=== PATIENT | male | born 1980 | race Caucasian/White ===

== ENCOUNTER 2023-02-09 11:20 | Emergency (ER) | payer SELFPAY ==
[2023-02-09 11:25] VITALS: BP 120/66; PULSE 88; RESP 16; TEMP 36.7; O2SAT 95
--- NOTE | 2023-02-09 12:31 | ED.SKABFB ---
HPI - Skin/Abscess/Foreign Bdy General Chief complaint: Skin/Abscess/Foreign Body Stated complaint: ?BUG BITE Time Seen by Provider: 02/09/23 11:57 History of Present Illness HPI narrative: Patient is a 42-year-old male presenting with cellulitis. Patient states that on Monday the abscess on his left back spontaneously drained. He went to another hospital and was started on Bactrim which he has been taking as prescribed. States that there is some more redness spreading so he came in for evaluation. States he has had decreased appetite but no vomiting. No fevers. Denies further complaints. Related Data Allergies Allergy/AdvReac Type Severity Reaction Status Date / Time No Known Allergies Allergy Mild Verified 02/09/23 12:42 Review of Systems Review of Systems: All systems reviewed & are unremarkable except as noted in HPI and below PMFSH Family History Family History Mother Asthma Family history of diabetes mellitus in first degree relative Father Family history of coronary artery disease Social History Social History Alcohol intake: current Exam Narrative: GENERAL: Well-appearing, well-nourished, and in no acute distress. HEAD: Normocephalic, atraumatic. EYES: PERRLA and EOMI. ENT: Nares clear, no rhinorrhea or epistaxis. Mucous membranes moist. NECK: Supple. CHEST: No respiratory distress. HEART: Regular rate and rhythm ABDOMEN: Soft, nontender, nondistended EXTREMITIES: Normal range of motion. No edema. SKIN: Warm, dry, area of cellulitis lateral left chest wall extending to upper back with central head draining slight purulent/bloody drainage NEURO: No focal deficits. Alert and oriented x3. PSYCH: Normal mood and affect. Course Vital Signs Vital signs: Vital Signs Temperature 98.1 F 02/09/23 11:25 Pulse Rate 88 02/09/23 11:25 Respiratory Rate 16 02/09/23 11:25 Blood Pressure 120/66 02/09/23 11:25 Pulse Oximetry 95 02/09/23 11:25 Oxygen Delivery Room Air 02/09/23 11:25 Temperature 98.1 F 02/09/23 11:25 Pulse Rate 88 02/09/23 11:25 Respiratory Rate 16 02/09/23 11:25 Blood Pressure 120/66 02/09/23 11:25 Pulse Oximetry 95 02/09/23 11:25 Oxygen Delivery Room Air 02/09/23 11:25 MDM - Skin/Abscess/Foreign Bdy MDM Narrative Medical decision making narrative: Patient is a 42-year-old male presenting with cellulitis. Vitals are within normal limits. Patient is well-appearing and in no acute distress. Exam is remarkable for the above. He does have an area of cellulitis on his left upper back spreading to his left chest wall. There is an area of drainage. Sounds like he is only been covered with Bactrim, will add Keflex for additional strep coverage. We will apply warm compress to encourage additional drainage. Advised that he apply warm compresses 4 times daily for the next several days. Advised that he complete the antibiotics as prescribed and follow-up closely with PCP for wound check within the next couple of days. Appropriate return precautions given. Patient voiced understanding and is agreeable with plan. Discharged in stable condition. Differential Diagnosis Differential diagnosis: Likely abscess of skin or subcutaneous tissue and cellulitis Medical Records Attestation: I reviewed the patient's medical records. Critical Care Time Critical Care Time Critical Care Time: No Discharge Plan Discharge Clinical Impression: Cellulitis, Abscess of skin or subcutaneous tissue Patient Disposition: Home, Self-Care Condition: Stable Instructions: Antibiotic Form, Cellulitis (ED), Abscess (ED) Additional Instructions: Please complete both antibiotics as prescribed. Please apply warm compresses to the area several times a day for the next few days to encourage continued drainage. Please call primary care to schedule close
[2023-02-09] MEDS: CEPHALEXIN 500 MG CAPSULE PO (12:38)
== END 2023-02-09 13:32 | disposition home or self-care (01) ==
PROVIDERS: Emergency Provider Emergency Medicine
DX: L03.312 Cellulitis of back [any part except buttock and flank] (principal)
CPT/HCPCS: 99283; A9270

== ENCOUNTER 2025-04-30 08:43 | Emergency (ER) | payer BC, SELFPAY ==
--- NOTE | ~2025-04-30 | CT_ITS ---
EXAMINATION: CT abdomen pelvis wo con DATE: 04/30/2025 09:25 INDICATION: Flank pain TECHNIQUE: Computed tomography (CT) of the abdomen and pelvis was performed without intravenous contrast. Automated exposure control and iterative reconstruction technique were employed. The dose-length product was 292.78 mGy-cm. COMPARISON: None FINDINGS: Mild dependent atelectasis in bilateral lower lobes. Heart size is normal. No pericardial or pleural effusion. Small sliding-type hiatal hernia. A few hepatic calcifications consistent with old granulomatous disease. Spleen, pancreas, bilateral adrenal glands and left kidney are normal. 3 to 4 mm stone at the right ureterovesicular junction with mild right hydroureteronephrosis. Partially decompressed bladder is otherwise unremarkable. Bowels including the appendix are normal. No free intraperitoneal gas or fluid. No pathologically enlarged abdominal or pelvic lymphadenopathy. And mild to moderate lower thoracic and minimal to mild lumbar spondylosis. IMPRESSION: 1. Obstructing 3-4 mm stone at the right ureterovesicular junction with mild right hydroureteronephrosis. Reviewed, dictated and finalized at location A. IMPRESSION: 1. Obstructing 3-4 mm stone at the right ureterovesicular junction with mild ri ght hydroureteronephrosis.
--- NOTE | ~2025-04-30 | XR_ITS ---
EXAMINATION: XR abdomen/kub 1V DATE: 04/30/2025 10:45 INDICATION: Flank pain. Ureteral calculi. TECHNIQUE: A supine view of the abdomen on 2 radiographs was obtained. COMPARISON: CT dated 04/30/2025 FINDINGS: 3-4 mm stone at the right ureterovesicular junction is clearly evident on the plain radiographs. There are couple small phleboliths in the left hemipelvis. No other suspicious calcifications in the abdomen or pelvis. Normal bowel gas pattern. IMPRESSION: 1. 3-4 mm stone at the right ureterovesicular junction. Reviewed, dictated and finalized at location A.
[2025-04-30 08:46] VITALS: BP 151/90; PULSE 62; RESP 16; TEMP 36.3; O2SAT 99
--- OUTSIDE RECORDS SUMMARY | 2025-04-30 08:57 | XMS_ITS | Data Portability ---
Author Organization [place] [facility], Main Office Address [address] [place] [address] Assessment Encounter Date Assessment Date Assessment LastModified by Organization Details LastModified Time 11/21/2023 11/21/2023 Assessment: TIAGO PLMD Hypoventilation Plan: The following were reviewed and explained to the patient: primary care/referral note General information on sleep disordered breathing, evaluation of sleep disordered breathing, treatment with PAP therapy, and living with PAP therapy were covered. Chapter 1 of educational DVD was shown. PSG is medically necessary to determine the degree of and management of sleep apnea. We discussed with the patient the impact of weight on: Sleep disordered breathing RANJITH We discussed with the patient the benefit of PAP therapy on: Sleep disordered breathing Anxiety/Depression Headaches RANJITH Educated the patient on sleep hygiene measures. Relaxing rituals to rest easy, understanding foods with positive and negative impact on sleep, creating a peaceful sleep environment, timing of exercise, using herbal sleep aids, and practicing sleep-friendly meditation were covered. To determine how much sleep is needed, the patient will assess where he falls on the spectrum, examine what lifestyle factors such as work schedules and stress are affecting the quality and quantity of sleep. In general, adults need 7-9 hours of sleep. Educated the patient regarding foods that promote sleep. These include but are not limited to cherries, bananas, toast, oatmeal, and warm milk. Educated the patient regarding foods and drinks to avoid before bedtime. These include but are not limited to aged cheese, chocolate, spicy foods, tomato-based sauces, soy, ginseng tea and processed meat. Advocated influenza vaccination annually and pneumonia vaccination 2045. Advocated weight loss through diet and exercise. Patient's ideal body weight according to height and gender is up to 185 lbs. Encouraged patient to adjust caloric intake to maintain/achieve ideal body weight, emphasizing on fruits, vegetables, whole grains, and fat-free or low-fat products. These include lean meats, poultry, fish, beans, eggs, and nuts and foods that are low in saturated fats, trans-fats, cholesterol, salt (sodium), and glycemic index. Stressed the importance of regular exercise up to the patient's capacity limits. In this case, we recommend 20 min daily walking, 2 days a week of resistance training. Patient to monitor BP daily and bring records to PCP for further management. Follow-up: 1 week after diagnostic sleep study [email or web address] Not available 11/21/2023 09:54:29 12/12/2023 12/12/2023 Assessment: Very severe OSAHS, AHI = 76 Plan: The following were reviewed and explained to the patient: [facility] split sleep study 11/27/23 sleep onset = 5 minutes, REM onset = 277.5 minutes, AHI = 76, supine AHI = 90, Figueroa [employer] Arnoldo medium Deborah nasal mask @ 11-20 cmH2O, PLMI = 0.0 Educated the patient on problems and solutions associated with positive airway pressure (PAP) use. Difficulty tolerating pressure, mask leaks, intolerance of interface, nasal congestion, claustrophobic response, dry mouth, and unintentional mask removal during sleep were covered. Patient has some difficulty tolerating pressure. Patient is advised to practice wearing PAP daily while awake, lower pressure with or without sleeping on sides, activate PAP ramp feature, have blower checked to make sure pressure is set as prescribed and return to sleep center for consideration of auto-adjusting PAP therapy. Dry mouth is a normal occurrence for people who just start out on PAP therapy because they are not used to air blowing in to the throat to hold open. Dry mouth is exacerbated for people who wear nasal PAP mask and whose jaw drops open during sleep. Not only does this create a much less efficient therapy because of leakage, it also causes dry mouth. There are a couple solutions to help prevent this type of problem. A simple solution would be to wear a chinstrap which essentially holds the jaw in place. A second solution would be a switch to a full face mask which covers both the nose and mouth. Although this is another easy solution, using a full face mask for some could seem claustrophobic or confining. There is no silver bullet solution as no single mask is right for everybody. Sometimes it takes a bit of experimentation to find a PAP mask which best meets the patient's needs as well as fits comfortably. Another tactic is to use a humidifier on your PAP machine. Most new PAP machines have integrated humidifiers. Humidification is booker when dealing with symptoms of dry mouth because the humidifier can supply both warm and room temperate air. Even a small amount of humidity in the airflow will help nasal passages to stay hydrated. If a person is using both a full face mask and a PAP machine with a heated humidifier and is still experiencing dry mouth, an ill-fitted PAP mask might be causing the problem. Leakage can be caused by a mask that is to large or small, the wrong style mask, the cushion is degraded or simply because the mask's straps aren't adjusted correctly. If leakage occurs, dry air from the room can leak in while humidification escapes. The result is reduced humidification within the circuit and resulting in dry throat and mouth. Finally, beyond factors involving the PAP machine and mask, dry mouth can also be caused or worsened by dehydration. The general recommendation to during eight 8 oz. glasses of water a day might be too little for many people. When people drink large amounts of coffee or other caffeine beverages, or sweat a lot during the day, making sure to rehydrate is an important part of PAP therapy. ResMed Air Sense 11 auto set unit with heated humidifier, supplies and Figueroa [employer] GlySure medium Deborah nasal mask @ 11-20 cmH2O ordered. Further titration will be based on clinical response. Provided the patient with a list of local home care stores where positive airway pressure (PAP) units, accoutrement, and services are available. Home care store selection is based on patient's insurance carrier. Patient will setup an appointment with [facility] for supplies and pressure adjustments. A major predictor of success with use of PAP is follow-up with both the respiratory supplier and the treating physician. The respiratory supplier optimally will follow-up within two weeks after starting use while the treating physician optimally will follow-up within 90 days after starting therapy to assess adherence and effectiveness of treatment. The download results can show the treating physician information about adherence to treatment, residual AHI while on treatment and presence of large mask leakage. This information is especially helpful if the patient has residual sleepiness despite treatment. General information on sleep disordered breathing, evaluation of sleep disordered breathing, treatment with PAP therapy, and living with PAP therapy were covered. Chapter 3 of educational DVD was shown. We discussed with the patient the impact of weight on: Sleep disordered breathing RANJITH We discussed with the patient the benefit of PAP therapy on: Sleep disordered breathing Anxiety/Depression Headaches RANJITH Educated the patient on sleep hygiene measures. Relaxing rituals to rest easy, understanding foods with positive and negative impact on sleep, creating a peaceful sleep environment, timing of exercise, using herbal sleep aids, and practicing sleep-friendly meditation were covered. To determine how much sleep is needed, the patient will assess where he falls on the spectrum, examine what lifestyle factors such as work schedules and stress are affecting the quality and quantity of sleep. In general, adults need 7-9 hours of sleep. Educated the patient regarding foods that promote sleep. These include but are not limited to cherries, bananas, toast, oatmeal, and warm milk. Educated the patient regarding foods and drinks to avoid before bedtime. These include but are not limited to aged cheese, chocolate, spicy foods, tomato-based sauces, soy, ginseng tea and processed meat. Advocated influenza vaccination annually and pneumonia vaccination 2045. Advocated weight loss through diet and exercise. Patient's ideal body weight according to height and gender is up to 185 lbs. Encouraged patient to adjust caloric intake to maintain/achieve ideal body weight, emphasizing on fruits, vegetables, whole grains, and fat-free or low-fat products. These include lean meats, poultry, fish, beans, eggs, and nuts and foods that are low in saturated fats, trans-fats, cholesterol, salt (sodium), and glycemic index. Stressed the importance of regular exercise up to the patient's capacity limits. In this case, we recommend 20 min daily walking, 2 days a week of resistance training. Patient to monitor BP daily and bring records to PCP for further management. Follow-up: 3 months, February 2024 [email or web address] Not available 12/12/2023 15:06:52 Plan of Treatment Reminders Order Date Submit Date Provider Last Modified By Organization Details Last Modified Time Details Appointments None recorde d. Lab None recorde d. Referral None recorde d. Procedures None recorde d. Surgeries None recorde d. Imaging polysom nogram, diagnos tic, 6 yrs or older 024 11/21/19 24 5 [facility], [place], [address], [place], [address], 4 09:22:12 Medication Orders None recorde d. Patient TargetsNo targets recorded. Patient InstructionsNo instructions recorded. Reason for Referral None Reported. Results Created Date Observation Date Name Description Value Unit Range Abnormal Flag Note LastModifiedBy Organization Detail LastModifiedTime 11/30/19 24 11/27/2023 polys omnog adalberto, split night No observ ation record ed. BARCODE Not Available 2023 11:34:25 Result Notes None recorded. Problems Name Problem SNOMED Code Status Onset Date Resolution Date Notes Provider Name and Address Organization Details Recorded Time Sleep apnea 29499261 Active 024 Regan Aquino MD [address], [employer], [place], [address], [employer] 4 09:51:13 Obstructive sleep apnea syndrome 74351543 Active 024 Regan Aquino MD [address], [place], [address], [employer] 4 14:52:39 Notes:[facility] split sleep study 11/27/23 sleep onset = 5 minutes, REM onset = 277.5 minutes, AHI = 76, supine AHI = 90, Fig[employer]ero[employer] Paykel medium Deborah nasal mask @ 11-20 cmH2O, PLMI =0.0 Medical History: Marijuana use Anxiety/Depression Migraine headaches Bilateral tinnitus Treatment-emergent central apneas Obesity with very severe OSAHS, AHI = 76, [facility] autoCPAP c/o [facility] RANJITH Procedure History: None Occupational History: Hospital maintenance Problem Notes None recorded. Medical Equipment None Reported. Allergies No known drug allergies Medications Name Sig Start Date Stop Date Status Note LastModified by Organization Details LastModified Time pantoprazole active Not Available Not Available Not Available Vitals Date Recorded Body temperature Heart rate Respiratory rate Provider Name and Address Organization Details Last Updated DateTime 11/21/2023 97.2 [degF] 80 /min 15 /min Regan Aquino MD [address], [employer], [place], [address], [employer] 11/21/2023 09:56:15 Date Recorded Body height Body mass index (BMI) Body weight Heart rate Oxygen saturation Oxygen saturation in Arterial blood by Pulse oximetry Systolic And Diastolic Provider Name and Address Organization Details Last Updated DateTime 4 180.34 cm 32.6 kg/m2 848546. 61 g 80 /min 96 % 96 % 120/74 mm[Hg] Meenu Aguiar CMA [employer] [place] [facility] [employer] [facility] 4 09:23:14 Date Recorded Heart rate Respiratory rate Provider N lorena and Address Organization Details Last Updated DateTime 12/12/2023 79 /min 14 /min Regan Aquino MD [address], [address], [place], [address], [facility] [employer] [facility] 12/12/2023 14:53:20 Date Recorded Body height Body mass index (BMI) Body weight Body temperature Heart rate Oxygen saturation Oxygen saturation in Arterial blood by Pulse oximetry Systolic And Diastolic Provider Name and Address Organization Details Last Updated DateTime 4 180.34 cm 32.4 kg/m2 348131. 43 g 98.1 [degF] 79 /min 97 % 97 % 112/70 mm[Hg] Meenu Aguiar CMA [facility] 4 14:38:19 Social History Question Answer Notes LastModified by Organizat ion Details LastModified Time Tobacco Smoking Status Former Smoker Quit 3 years Meenu Aguiar C[place] [facility] [employer] 11/21/2023 09:25:27 Is Blood Transfusion Acceptable In An Emergency? Yes [email or web address] Information not available 11/21/2023 What Is Your Level Of Caffeine Consumption? Moderate Information not available 11/21/2023 In The 14 Days Before Symptom Onset, Have You Had Close Contact With A Laboratory-confir med COVID-19 While That Case Was Ill? No [email or web address] Information not available 11/21/2023 In The 14 Days Before Symptom Onset, Have You Had Close Contact With A Person Who Is Under Investigation For COVID-19 While That Person Was Ill? No [email or web address] Information not available 11/21/2023 What Type Of Diet Are You Following? REGULAR Information not available 11/21/2023 What Is The Highest Grade Or Level Of School You Have Completed Or The Highest Degree You Have Received? [id number] Information not available 11/21/2023 How Many Children Do You Have? 3 [email or web address] Information not available 11/21/2023 Do You Have Any Pets? Yes 1 Dog [email or web address] Information not available 11/21/2023 What Is Your Relationship Status? [email or web address] Information not available 11/21/2023 Do You Use Your Seat Belt Or Car Seat Routinely? Yes Information not available 11/21/2023 Do You Have Smoke And Carbon Monoxide Detectors In Your Home? Yes [email or web address] Information not available 11/21/2023 Do You Use Sunscreen Routinely? Yes [email or web address] Information not available 11/21/2023 How Many Years Have You Smoked Tobacco? 20 [email or web address] Information not available 11/21/2023 Have You Recently Traveled Abroad? No [email or web address] Information not available 11/21/2023 Sex: Unknown Functional Status Question Answer Note LastModified by Organizat ion Details LastModified Time Do you use any illicit or recreational drugs? Yes Marijuana [email or web address] Information not available 11/21/2023 What is your level of alcohol consumption? None [email or web address] Information not available 11/21/2023 Are you currently employed? No [email or web address] Information not available 11/21/2023 What is your exercise level? None [email or web address] Information not available 11/21/2023 Mental Status Question Answer Note LastModified by Organization D etails LastModified Time Do you feel stressed (tense, restless, nervous, or anxious, or unable to sleep at night)? [id number] [email or web address] Information not available 11/21/2023 Family History Relationship Description Onset Age of this Age Resolved Age Notes LastModified by Organization Details LastModified Time Mother Diabetes mellitus [email or web address] Not available 2023 00:08:09 Mother Asthma [email or web address] Not available 09:48:57 Father Coronary arterioscler osis [email or web address] Not available 2023 00:08:19 Maternal Grandfather Heart disease [email or web address] Not available 2023 09:47:29 Paternal Grandmother Heart disease [email or web address] Not available 2023 09:47:36 Paternal Grandfather Malignant neoplasm of lung [email or web address] Not available 2023 09:48:03 Maternal Grandmother Malignant neoplasm of breast [email or web address] Not available 2023 09:48:17 Maternal Grandmother Dementia [email or web address] Not available 11/20 09:48:26 Son Attention deficit hyperactivit y disorder [email or web address] Not available 11/20 09:49:19 Medical History No medical history recorded. Past Encounters Encounter ID Performer Location Encounter Start Date Encounter Closed Date Diagnosis/Indication Diagnosis SNOMED-CT Code Diagnosis ICD10 Code Diagnosis IMO Codes Diagnosis Note [id number] Regan Aquino MD [facility] [address] 11/21/2023 09:04:53 11/22/2023 08:42:44 Sleep apnea 49562672 G47.30 G47.33 G47.36 G47.61 [id number] Regan Aquino MD [place] [address] 12/12/2023 14:31:10 12/13/2023 08:59:20 Obstructive sleep apnea syndrome 77487821 G47.33 Health Concerns Section Related Observation LastModified by Organization Detai ls LastModified Time None Recorded Concern Status LastModified by Organization Details LastModified Time None Recorded Advance Directives Directive None Recorded Payers Insurance Date Sequence Insurance Name Policy Number Policy Ross Covered Member ID Ross Member ID Guarantor Name 05/09/2024 [facility] Christoph Capps [id number] Christoph Capps Notes Date Note Type Note Provider Name and Address Organization Details Recorded Time 11/21/2023 text/html Primary care/Referring provider: Kofi Kuhn MD PhD At home, the patient sleeps from 11 pm to 7 am and wakes up without an alarm. Snoring: heavy, since 1990s. Snorting: no Choking: yes Coughing: yes Gasping: yes Gagging: yes Sighing: yes Witnessed apnea: yes Twitching or jerking of leg(s), arm(s), body, head: yes Teeth grinding: no Teeth clenching: no Sleeptalking: yes Sleepwalking: no Sleep crying: no Bedwetting: no Tongue/lip/gum/cheek biting: no Sleeping with open mouth: yes Sleep paralysis: no Hypnagogic hallucinations: no Hypnopompic hallucinations: no Vivid dreams: yes Difficulty with sleep onset: yes Difficulty with sleep maintenance: yes Sleep interruptions: nocturia x 3 Patient wakes up with: fatigue, xerostomia, sore throat, hoarse voice, headaches, jaw pain, cognitive impairment Daytime cataplexy: no Morning hypersomnolence: no Afternoon hypersomnolence: yes Caffeine sources in diet: coffee 3 cups per day, tea 1/3 glass per day, soda 3.5 cans per day, chocolate 1 candy bar per month Associated medical and psychiatric conditions: Congestive heart failure: no Coronary artery disease: no Myocardial infarction: no Hypertension: no Stroke: no Bronchial asthma: no Chronic obstructive pulmonary disease: no Depression: yes Bipolar disorder: no Anxiety: yes Panic disorder: no Posttraumatic stress disorder: no Attention deficit and hyperactivity disorder: no Obsessive Compulsive disorder: no Schizophrenia: no Schizoaffective disorder: no Personality disorder: no Chronic analgesic use: no Chronic sedative/hypnotic use: no EPWORTH SLEEPINESS SCALE (ESS) CHANCE OF DOZING SCORE 0 = would never doze 1 = slight chance of dozing 2 = moderate chance of dozing 3 = high chance of dozing SITUATION AND CHANCE OF DOZING Sitting and reading - 2 Watching television - 3 Sitting inactive in a public place (e.g. a theater or meeting) - 0 As a passenger in a car for an hour without a break - 0 Lying down to rest in the afternoon when circumstances permit - 2 Sitting and talking to someone - 0 Sitting quietly after lunch without alcohol - 3 In a car, while stopped for a few minutes in the traffic - 0 TOTAL SCORE 10 Subjectively, patient has a moderate chance of dozing. Regan Aquino MD [address] [place] [address], [phone], [facility] [employer] [facility] 11/21/2023 09:56:25 12/12/2023 text/html Primary care/Referring provider: Kofi Kuhn MD PhD During the [facility] split sleep study on 11/27/23, sleep onset = 5 minutes, REM onset = 277.5 minutes, AHI = 76, supine AHI = 90, PLMI = 0.0. The patient uses a ResMed AirSense 11 autoset unit with heated humidification. The patient does not need the ramp to start low and go up slowly on the pressure. There is some xerostomia in a.m. There is no hose/mask condensation with water. The patient wears a Figueroa & GlySure medium Deborah nasal mask without chin strap. There is no claustrophobia, no nostril/nose bridge irritation, no facial rash, no facial numbness, no nosebleeding. The patient feels more refreshed upon waking and daytime alertness is improved. Energy levels are sustained for the remainder of the day. At home, the patient sleeps from 11 pm to 7 am and wakes up without an alarm. Snoring: heavy, since .Snorting: noChoking: yesCoughing: yesGasping: yesGagging: yesSighing: yesWitnessed apnea: yesTwitching or jerking of leg(s), arm(s), body, head: yesTeeth grinding: noTeeth clenching: noSleeptalking: yesSleepwalking: noSleep crying: noBedwetting: noTongue/lip/gum/cheek biting: noSleeping with open mouth: yesSleep paralysis: noHypnagogic hallucinations: noHypnopompic hallucinations: noVivid dreams: yesDifficulty with sleep onset: yesDifficulty with sleep maintenance: yesSleep interruptions: nocturia x 3Patient wakes up with: fatigue, xerostomia, sore throat, hoarse voice, headaches, jaw pain, cognitive impairmentDaytime cataplexy: noMorning hypersomnolence: noAfternoon hypersomnolence: yesCaffeine sources in diet: coffee 3 cups per day, tea 1/3 glass per day, soda 3.5 cans per day, chocolate 1 candy bar per month Associated medical and psychiatric conditions:Congestive heart failure: noCoronary artery disease: noMyocardial infarction: noHypertension: noStroke: noBronchial asthma: noChronic obstructive pulmonary disease: noDepression: yesBipolar disorder: noAnxiety: yesPanic disorder: noPosttraumatic stress disorder: noAttention deficit and hyperactivity disorder: noObsessive Compulsive disorder: noSchizophrenia: noSchizoaffective disorder: noPersonality disorder: noChronic analgesic use: noChronic sedative/hypnotic use: no EPWORTH SLEEPINESS SCALE (ESS) CHANCE OF DOZING SCORE0 = would never doze1 = slight chance of dozing2 = moderate chance of dozing3 = high chance of dozing SITUATION AND CHANCE OF DOZINGSitting and reading - 2Watching television - 1Sitting inactive in a public place (e.g. a theater or meeting) - 1As a passenger in a car for an hour without a break - 0Lying down to rest in the afternoon when circumstances permit - 3Sitting and talking to someone - 0Sitting quietly after lunch without alcohol - 2In a car, while stopped for a few minutes in the traffic - 0TOTAL SCORE 9Subjectively, patient has a moderate chance of dozing. Regan Aquino MD [address] [place] [address], [phone], [facility] 12/12/2023 15:07:00
[2025-04-30 09:08] VITALS: BP 141/86; PULSE 64; RESP 16; O2SAT 99
[2025-04-30 09:12] LABS: Hematocrit 44.3 % (42.0-52.0); Hemoglobin 14.8 g/dL (14.0-18.0); Immature Granulocyte Percent A 0.3 % (0-0.5); Lymphocytes Absolute Auto 2.49 K/mm3 (0.9-3.2); Mean Corpuscular HGB Conc 33.4 g/dl (32-36); Mean Corpuscular Hemoglobin 27.9 pg (26-34); Mean Corpuscular Volume 83.6 fl (80-100); Nucleated Red Blood Cells Absolute Auto 0.000 K/mm3 (0.0-0.012); Nucleated Red Blood Cells Perc 0.0 % (0.0-0.2); Platelet Count Result 181 k/mm3 (150-375); Red Blood Count 5.30 M/mm3 (4.6-6.20); White Blood Count 10.2 K/mm3 (4.5-10.0)
[2025-04-30 09:24] LABS: Alanine Aminotransferase 26 U/L (6-50); Albumin Level 4.2 g/dL (3.5-5.1); Alkaline Phosphatase 65 U/L (38-126); Anion Gap 12 mmol/L (4-12); Aspartate Amino Transferase 28 U/L (17-59); Bilirubin,Total 0.5 mg/dL (0.2-1.3); Blood Urea Nitrogen 26 mg/dL (9-20); Calcium 8.8 mg/dL (8.4-10.2); Carbon Dioxide 22 mmol/L (22-30); Chloride 104 mmol/L (98-107); Estimated CRCL calculation 74 ml/min; Estimated Glomerular Filt Rate 56; Glucose 145 mg/dL (65-110); Potassium 3.8 mmol/L (3.4-5.0); Sodium 138 mmol/L (137-145); Total Protein 7.2 g/dL (6.3-8.2)
[2025-04-30 09:25] LABS: INR 1.0; Prothrombin Time 13.0 Seconds (11.1-14.7)
[2025-04-30 09:26] LABS: Partial Thromboplastin Time 30.0 Seconds (22.3-36.8)
[2025-04-30 09:26] LABS: Add Urine Microscopic? YES; Appearance Urine Clear (Clear); Glucose Urine UA Negative (Negative); Leukocyte Esterase Ur Trace LEU/UL (Negative); Nitrate Urine Negative (Negative); Non Pathogenic Casts 0-2; Specific Grav Ur 1.020 (1.001-1.035)
--- NOTE | 2025-04-30 09:30 | ED_ITS ---
HPI - General Adult General Chief complaint: Back Pain/Injury Stated complaint: back pain Time Seen by Provider: 04/30/25 08:50 History of Present Illness HPI narrative: 44 year old male present to the emergency department for evaluation for right flank pain. Patient reports flank pain has been ongoing for the past few weeks. Patient has had follow-up twice with the DC. Patient does have an outpatient CT scan scheduled I week from the DC. Patient was provided medications for pain control but states this is not helping. Patient does have history of kidney stones. Patient states he has not passed any kidney stones he is aware of since this pain has begun. At time of evaluation patient is uncomfortable appearing. Related Data Allergies Allergy/AdvReac Type Severity Reaction Status Date / Time No Known Allergies Allergy Mild Verified 04/30/25 08:44 Review of Systems 2 Review of Systems: All systems reviewed & are unremarkable except as noted in HPI and below PMFSH Family History Family History Mother Asthma Family history of diabetes mellitus in first degree relative Father Family history of coronary artery disease Social History Social History Alcohol intake: current Exam 2 Narrative: APPEARANCE: Uncomfortable appearing HEAD: normocephalic, atraumatic. EYES: PERRLA/EOMI, conjunctivae clear. NOSE: Normal no drainage EARS:TMS clear with good light reflex. THROAT: Pharynx clear, no exudate. NECK: Supple. No adenopathy, no masses. RESPIRATORY: Airway patent, respirations nonlabored. Clear to auscultation bilaterally, no rales, rhonchi, wheezing. CARDIOVASCULAR: Regular rate and rhythm without murmurs rubs or gallops. ABDOMINAL: Right CVA tenderness to palpation MUSCULOSKELETAL: Moves all extremities. Strength/ROM intact, No edema, No calf tenderness. NEURO: Alert. Cranial nerves II through XII intact. Good gait. Good coordination SKIN: Warm, dry. Normal Color Course Vital Signs Vital signs: Vital Signs Temperature 97.4 F L 04/30/25 08:46 Pulse Rate 62 04/30/25 08:46 Respiratory Rate 16 04/30/25 08:46 Blood Pressure 151/90 H 04/30/25 08:46 Pulse Oximetry 99 04/30/25 08:46 Oxygen Delivery Room Air 04/30/25 08:46 Temperature 97.8 F 04/30/25 11:29 Pulse Rate 65 04/30/25 11:29 Respiratory Rate 16 04/30/25 11:29 Blood Pressure 125/76 04/30/25 11:29 Pulse Oximetry 100 04/30/25 11:29 Oxygen Delivery Room Air 04/30/25 08:46 Medical Decision Making MDM Narrative Medical decision making narrative: A 44-year-old male presents to the emergency department for evaluation for right flank pain. Patient has been dealing with a suspected kidney stone for the past 2 weeks. Patient is currently afebrile but does have a leukocytosis 10.2 and hemoglobin of 14.8. INR of 1.0. Patient does have a creatinine of 1.38 with unknown baseline creatinine. Patient was treated with 1 L of lactated Ringer's, 1 mg of Dilaudid and 30 mg of IV Toradol. UA was positive for hematuria but negative for underlying infection. CT scan was ordered and does show a 3-4 mm stone at the right UVJ. Patient family were updated on the results of the workup. Patient was also treated with p.o. Flomax emergency department. Patient will be discharged home with Flomax, pain medication and medications for nausea control. Patient was encouraged of close follow-up with Urology Differential Diagnosis Differential Diagnosis: Urinary tract infection, ureteral calculi, infected stone, colitis, diverticulitis, appendicitis Vital Signs Vital Signs: Vital Signs Temperature 97.4 F L 04/30/25 08:46 Pulse Rate 62 04/30/25 08:46 Respiratory Rate 16 04/30/25 08:46 Blood Pressure 151/90 H 04/30/25 08:46 Pulse Oximetry 99 04/30/25 08:46 Oxygen Delivery Room Air 04/30/25 08:46 Temperature 97.8 F 04/30/25 11:29 Pulse Rate 65 04/30/25 11:29 Respiratory Rate 16 04/30/25 11:29 Blood Pressure 125/76 04/30/25 11:29 Pulse Oximetry 100 04/30/25 11:29 Oxygen Delivery Room Air 04/30/25 08:46 Lab Data Lab results reviewed: Yes I reviewed the patient's lab results. 04/30/25 09:08 04/30/25 09:08 Labs: Lab Results 04/30/25 04/30/25 Range/Units 09:08 09:14 WBC 10.2 H (4.5-10.0) K/mm3 RBC 5.30 (4.6-6.20) M/mm3 Hgb 14.8 (14.0-18.0) g/dL Hct 44.3 (42.0-52.0) % MCV 83.6 (80-100) fl MCH 27.9 (26-34) pg MCHC 33.4 (32-36) g/dl RDW 12.6 (11.5-14.5) % Plt Count 181 (150-375) k/mm3 MPV 9.8 (7.4-10.4) fl Immature Gran % (Auto) 0.3 (0-0.5) % Neut % (Auto) 65.8 (45.5-73.1) % Lymph % (Auto) 24.5 (18.3-44.2) % [place] % (Auto) 6.9 (2.6-8.5) % Eos % (Auto) 2.2 (0-4.4) % Baso % (Auto) 0.3 (0.2-1.2) % Lymph # (Auto) 2.49 (0.9-3.2) K/mm3 [place] # (Auto) 0.7 H (0.1-0.6) K/mm3 Eos # (Auto) 0.2 (0-0.3) K/mm3 Baso # (Auto) 0.0 (0.0-0.1) K/mm3 Abs Immat Gran (auto) 0.03 (0.00-0.031) K/mm3 Absolute Neuts (auto) 6.7 (1.3-6.7) K/mm3 Absolute Nucleated RBC 0.000 (0.0-0.012) K/mm3 Nucleated RBC % 0.0 (0.0-0.2) % PT 13.0 (11.1-14.7) Seconds INR 1.0 APTT 30.0 (22.3-36.8) Seconds Sodium 138 (137-145) mmol/L Potassium 3.8 (3.4-5.0) mmol/L Chloride 104 (98-107) mmol/L Carbon Dioxide 22 (22-30) mmol/L Anion Gap 12 (4-12) mmol/L BUN 26 H (9-20) mg/dL Creatinine 1.38 H (0.7-1.3) mg/dL Estim Creat Clear Calc 74 ml/min Estimated GFR 56 L (59 - ) Glucose 145 H (65-110) mg/dL Calcium 8.8 (8.4-10.2) mg/dL Total Bilirubin 0.5 (0.2-1.3) mg/dL AST 28 (17-59) U/L ALT 26 (6-50) U/L Alkaline Phosphatase 65 (38-126) U/L Total Protein 7.2 (6.3-8.2) g/dL Albumin 4.2 (3.5-5.1) g/dL Urine Color Yellow (Yellow) Urine Appearance Clear (Clear) Urine pH 6.5 (5.0-9.0) Ur Specific [place] 1.020 (1.001-1.035) Urine Protein Trace (Negative) mg/dL Urine Glucose (UA) Negative (Negative) mg/dL Urine Ketones Negative (Negative) mg/dL Ur Blood (Man) Non-hemolyzed trace (Negative) Urine Nitrate Negative (Negative) Urine Bilirubin Negative (Negative) Urine Urobilinogen 1.0 (<2.0) mg/dL Leukocyte Esterase Rfl Trace H (Negative) SANTI/UL Urine RBC 3-5 H (0-2) /hpf Urine WBC 0-5 (0-3) /hpf Ur Squamous Epith Cells None seen (Few) /hpf Urine Bacteria None seen /hpf Urine Casts 0-2 Imaging Data Radiologist's impression: Impressions Abdomen/Pelvis CT 04/30/25 09:34 IMPRESSION: 1. Obstructing 3-4 mm stone at the right ureterovesicular junction with mild right hydroureteronephrosis. Abdomen X-Ray 04/30/25 10:48 IMPRESSION: 1. 3-4 mm stone at the right ureterovesicular junction. Discharge Plan Discharge Clinical Impression: Calculus, ureteral Patient Disposition: Home Condition: Stable Instructions: Antibiotic Form, Kidney Stones (ED), How to Strain Your Urine (ED), Flank Pain (ED) Additional Instructions: Ibuprofen for pain control. [place] as needed for additional pain control. Flomax as directed help pass the stone. Zofran as needed for nausea control. Have close follow-up with Urology. If you have any worsening symptoms then please call or return to the emergency department. Patient Language: American Prescriptions: New hydrocodone-acetaminophen 5-325 mg tablet 1 tablet PO Q12H PRN (Reason: pain) Qty: 14 0RF tamsulosin [Flomax] 0.4 mg capsule 0.4 mg PO DAILY 14 Days Qty: 14 0RF ondansetron 4 mg tablet,disintegrating 4 mg PO Q8H PRN (Reason: nausea and vomiting) Qty: 14 0RF No Action cephalexin 500 mg capsule 500 mg PO Q6H 7 Days Qty: 28 0RF Follow-up/Referrals: Christoph Torres MD [Physician, Urology] [facility] [Primary Care Provider, Medical]
[2025-04-30] MEDS: HYDROmorphone HCL INJ (*CRX) 1 MG/ML SYR IV PUSH (09:36)
[2025-04-30] MEDS: LACTATED RINGERS 1,000 ML 999 ML IV CONT (09:36)
[2025-04-30] MEDS: ONDANSETRON INJ 4 MG/2 ML VIAL IV PUSH (09:36)
[2025-04-30] MEDS: KETOROLAC 30 MG/ML VIAL (*BKC) IV PUSH (10:03)
[2025-04-30 10:05] VITALS: BP 129/86; PULSE 73; RESP 14; O2SAT 97
[2025-04-30] MEDS: TAMSULOSIN HCL 0.4 MG CAPSULE PO (10:05)
--- OUTSIDE RECORDS SUMMARY | 2025-04-30 10:08 | XMS_ITS | Clinical Summary ---
Author Organization [facility] Address [address] [place] [id number] Care Team Providers Care Mail Processing Associate Name Role Phone Unavailable Primary Care Provider Unavailabl e Social History Tobacco Use Types Packs/Day Years Used Date Smoking Tobacco: Never Assessed Sex and Gender Information Value Date Recorded Sex Assigned at Not on file Legal Sex Male 4:19 PM CDT Gender Identity Not on file Sexual Orientation Not on file Plan of Treatment Health Maintenance Due Date Last Done Comments Annual Physical 11/18/1983 Hepatitis C 1998 DTaP, Tdap and Td Vaccines ( 1 - Tdap) 11/18/1999 Hepatitis B Vaccines (1 of 3 - 19+ 3-dose series) 11/18/1999 HPV Vaccines (1 - 3-dose SCD M series) 11/18/2007 COVID-19 Vaccine ( - 2023-2 5 season) 2025 Meningococcal B Vaccine Aged Out No l onger eligible based on patient's age to complete this topic Meningococcal Vaccine Aged Out No aggie master eligible based on patient's age to complete this topic Pneumococcal Vaccine: Pediat rics (0 to 5 Years) and At-Risk Patients (6 to 49 Years) Aged Out No longer eligible b ased on patient's age to complete this topic RSV Immunizations Under 20 Months Aged Out No longer eligible based on patient's age to complete this topic
[2025-04-30 11:29] VITALS: BP 125/76; PULSE 65; RESP 16; TEMP 36.6; O2SAT 100
== END 2025-04-30 11:30 | disposition home or self-care (01) ==
PROVIDERS: Emergency Provider Emergency Medicine
DX: N20.1 Calculus of ureter (principal)
CPT/HCPCS: 36415; 74018; 74176; 80053; 81001; 85025; 85610; 85730; 96361; 96374; 96375; 99284; A9270; J1171; J1885; J2405; J7120